=== PATIENT | male | born 1970 | race African-American/Black ===

== ENCOUNTER 2017-01-08 07:43 | Inpatient (IN) | payer OTHER ==
[2017-01-08] MEDS ORDERED: Ondansetron INJ* 2 MG/ML VIAL IV ONE (08:21)
[2017-01-08] MEDS ORDERED: NS 0.9% 1000 ML* 2,000 ML IV ONE ×2 (08:21→09:30)
--- NOTE | 2017-01-08 08:55 | RAD ---
HISTORY: Hyperglycemia COMPARISONS: February 25, 2011 VIEWS:1: Single frontal portable view of the chest at 8:20 AM FINDINGS: LINES AND TUBES: None. CARDIOMEDIASTINAL SILHOUETTE: The cardiomediastinal silhouette is normal for portable technique. PLEURA: The costophrenic angles are sharp. No pleural abnormalities are noted. LUNG PARENCHYMA: The lungs are clear. ABDOMEN: The upper abdomen is clear. There is no subphrenic gas. BONES AND SOFT TISSUES: No bone or soft tissue abnormalities are noted. IMPRESSION: NO ACTIVE CARDIOPULMONARY DISEASE.
[2017-01-08 08:59] LABS: Hematocrit 52 % (42-52); Hemoglobin 16.4 g/dl (14.0-18.0); Mean Corpuscular HGB Conc 32 g/dl (31-36); Mean Corpuscular Hemoglobin 31 pg (27-31); Mean Corpuscular Volume 98 fL (80-94); Mean Platelet Volume 8 um3 (7.4-10.4); Red Blood Count 5.33 10^6/ul (4.0-5.4); Red Cell Distribution Width 14 % (10.5-15)
[2017-01-08 09:00] LABS: Add Diff/Slide Review? Slide Review Added; Comments Flag Yes
[2017-01-08 09:04] LABS: ALT 34 U/L (7-52); Alkaline Phosphatase 58 U/L (34-104); BUN/Creatinine Ratio 22.9 (8-20); Blood Urea Nitrogen 36 mg/dL (6-24); C Reactive Protein 15.45 mg/L (< 5.00); Calcium 9.9 mg/dL (8.6-10.3); Chloride 97 mmol/L (101-111); EGFR African American 61.7 (>60); Globulin 3.1 g/dL (2-4); Sodium 136 mmol/L (133-145); Total Protein 8.1 g/dL (6.4-8.9)
[2017-01-08 09:13] LABS: Glucose 513 mg/dL (70-100)
[2017-01-08 09:15] LABS: Anion Gap 29 mmol/L (2-11); CO2 Carbon Dioxide 10 mmol/L (22-32)
[2017-01-08] MEDS ORDERED: Ciprofloxacin 400MG IVPREMIX(* 400 MG/200 ML BAG IVPB ONE (09:19)
[2017-01-08] MEDS ORDERED: metroNIDAZOLE IV 500 MG/100ML* 500 MG/100 ML BAG IVPB ONE (09:19)
[2017-01-08 09:56] LABS: Venous Bicarbonate HCO3 12.1 mmol/L (24-28)
--- NOTE | 2017-01-08 10:15 | RAD ---
HISTORY: Right upper quadrant pain COMPARISONS: Dated September 17, 2010 TECHNIQUE: Multiple transverse and longitudinal ultrasound images were obtained of the right upper quadrant of the abdomen using grayscale and color Doppler imaging. FINDINGS: LIVER: The liver is normal in shape, size, contour, and echogenicity. There are no focal parenchymal masses. There is normal hepatopedal flow of the portal vein on Doppler imaging. BILIARY TREE: There is no intrahepatic or extrahepatic biliary dilatation. The common duct measures 0.4 cm. GALLBLADDER: The gallbladder is well-visualized. There is no cholelithiasis, gallbladder wall thickening, pericholecystic fluid, or sonographic Cheng sign. PANCREAS: The head of the pancreas is unremarkable. The tail of the pancreas is not well visualized secondary to overlying bowel gas. RIGHT KIDNEY: The right kidney is normal in shape, size, contour, and echogenicity. There is no hydronephrosis or nephrolithiasis. The right kidney measures 11.3 x 5.5 x 5.8 cm. AORTA AND IVC: The aorta and IVC are unremarkable. FLUID: There are no pleural effusions. There is no free fluid within the hepatorenal recess. OTHER FINDINGS: None. IMPRESSION: NO ACUTE SONOGRAPHIC PATHOLOGY OF THE VISUALIZED PORTION OF THE ABDOMEN.
[2017-01-08] MEDS ORDERED: Acetaminophen TAB* 325 MG PO PRN (10:30)
[2017-01-08] MEDS ORDERED: NS 0.45% 1000 ML BAG* 1,000 ML IV SCH ×2 (11:00→17:46)
--- NOTE | 2017-01-08 12:27 | HP ---
CC: Dr. Sukh Ramirez * HISTORY AND PHYSICAL: DATE OF ADMISSION: 01/08/17 PRIMARY CARE PHYSICIAN: Dr. Sukh Ramirez. CHIEF COMPLAINT: Nausea and vomiting. HISTORY OF PRESENT ILLNESS: Mr. Lowery is a pleasant 46-year-old male with past medical history of type 1 diabetes, who presents to the hospital with nausea, vomiting, and weakness. The patient states he was in his usual state of health, felt very well until Thursday, he went out with a friend for oysters at [employer] and also had about 4 or 5 alcoholic drinks that night as well. He states that on the way home before he was able to get out of the car when he got home, he started to have episodes of emesis. He went inside and tried to drink some water; however, he was not able to keep this down. Over the past few days, he says he has just continued to have persistent nausea and vomiting, has eaten almost nothing in the past few days as he has been unable to keep anything down. He has not had any abdominal pain and no diarrhea. He states the emesis has been bilious and then today, it seemed to be a little bit darker and almost black. When stated if it looked like coffee grounds, he agreed. Has not had any bright red blood in the emesis. He states over the past few days, his blood sugars have been difficult to control, often in 200 to 300 despite no p.o. intake and increasing his home insulin. Today, his sugars were in the 400s and due to his progressive symptoms and significant weakness, he decided to come to the hospital for further evaluation. PAST MEDICAL HISTORY: Type 1 diabetes, anxiety, depression. PAST SURGICAL HISTORY: Right shoulder surgery. FAMILY HISTORY: Significant for paternal grandfather with diabetes, son with diabetes. SOCIAL HISTORY: The patient does not smoke cigarettes; however, he smokes marijuana occasionally mixed with tobacco. Reports he will often have 1 to 2 drinks per night. The 4 to 5 that he drank on Thursday night were more than usual for him, although he has never had a reaction like this before. HOME MEDICATIONS: 1. Lantus 15 units subcu twice daily. 2. NovoLog sliding scale. ALLERGIES: The patient has allergy to PENICILLIN that causes hives. REVIEW OF SYSTEMS: A 12-point review of systems negative except for that as noted in the HPI. PHYSICAL EXAMINATION GENERAL: The patient is a pleasant, middle-aged, man lying in bed, appears weak and fatigued, but in no significant distress. VITAL SIGNS: On admission, temperature 98.3, heart rate of 95, respiratory rate of 16, O2 saturation 100% on room air, blood pressure 139/77. HEENT: Head: Normocephalic, atraumatic. Eyes: Pupils equal, round, and reactive to light and accommodation. Anicteric sclerae. ENT: Dry mucous membranes. No cervical adenopathy. LUNGS: Clear to auscultation bilaterally. No wheezes, rales, or rhonchi. CARDIOVASCULAR: Regular rate and rhythm. S1 and S2 present. No murmurs, gallops, or rubs. ABDOMEN: Soft, nontender, nondistended. Bowel sounds hyperactive. EXTREMITIES: No cyanosis, clubbing, or edema. NEURO: The patient is alert and oriented x3. No focal neurological deficits. SKIN: Warm, dry, and well perfused. DIAGNOSTIC STUDIES/LAB DATA: White blood cell count of 27, hemoglobin of 16, hematocrit of 52, platelets of 364, 92% neutrophils. VBG with a pH of 7.19, PCO2 of 31, PO2 of 37, bicarb of 12. Sodium 136, potassium 5.3, chloride of 97 , carbon dioxide of 10, anion gap of 29, BUN of 36, creatinine 1.57, glucose of 513, lactic acid of 2.6. LFT's within normal limits. CRP of 15. Chest x-ray: Personally reviewed shows no acute disease. Abdominal ultrasound shows no acute sonographic pathology. ASSESSMENT AND PLAN: Diabetic ketoacidosis secondary to gastroenteritis, possibly due to foodborne illness in a 46-year-old man with a past medical history of type 1 diabetes, anxiety, and depression. 1. Diabetic ketoacidosis. Seems that was probably triggered from the oysters the patient ate, which developed into gastroenteritis. The patient has received 2 L of IV fluid in the emergency department. I asked Dr. Apple to order another 2 L bolus, to start the patient on an insulin drip, and check q.1 hour fingersticks. We will also check q.4 hour BMPs to ensure that his anion gap is closing. We will also recheck lactic in a few hours. The patient's corrected sodium is actually elevated at [address] him on half- normal saline for now at 250 cc an hour, can adjust this if needed. For now, we will keep the patient n.p.o. Not sure the patient has an infection necessitating antibiotics. He received Cipro and Flagyl in the emergency department. We will hold on any additional antibiotics for now. We will check a stool culture and a fecal lactoferrin. This could just potentially be viral and the patient's blood seems hemoconcentrated as well. We will monitor his CBC daily. 2. Acute kidney injury. Likely due to significant volume depletion. Creatinine is 1.57, seems like the patient's baseline, at least in the last check in 2011 was around 0.8. As noted above, will be following his BMPs closely. 3. Dark emesis. Possibly could have had some blood in the emesis, maybe due to gastritis, with hans-roberson would have expected red blood. Check gastric occult blood, monitor CBC 4. DVT prophylaxis. Heparin subcu. 5. Code status. The patient is full code. TIME SPENT: Total time spent on this admission was 60 minutes with over half the time spent [id number] with the patient in counseling and coordinating care. [id number]/[facility] #: [id number] MTDD
[2017-01-08 12:46] LABS: BUN/Creatinine Ratio 22.7 (8-20); Calcium 8.6 mg/dL (8.6-10.3); EGFR African American 78.2 (>60); EGFR Non-African American 60.8 (>60); Potassium 4.4 mmol/L (3.5-5.0)
[2017-01-08] MEDS ORDERED: Potassium Phosphate IV* 10 MMOLE in NS 0.9% 250 ML* 250 ML IVPB PRN (15:28)
[2017-01-08] MEDS ORDERED: Potassium Phosphate IV* 20 MMOLE in NS 0.9% 250 ML* 250 ML IVPB PRN (15:29)
[2017-01-08] MEDS ORDERED: Potassium Phosphate IV* 15 MMOLE in NS 0.9% 250 ML* 250 ML IVPB PRN (15:29)
[2017-01-08] MEDS ORDERED: D5W 1/2 NS KCl 20 Meq 1000 ML* 1,000 ML IV SCH (16:00)
[2017-01-08] MEDS: Heparin VIAL(*) 5000 UNITS/ML VIAL (FIVE THOUSAND) SUBCUT SCH ×2 (16:22→20:52)
[2017-01-08 16:55] LABS: BUN/Creatinine Ratio 21.1 (8-20); Calcium 8.3 mg/dL (8.6-10.3); EGFR African American 89.3 (>60); EGFR Non-African American 69.5 (>60)
[2017-01-08] MEDS: D5W 1/2 NS KCl 20 Meq 1000 ML* 1,000 ML IV SCH (19:30)
[2017-01-08] MEDS ORDERED: Dextrose 50% Syringe 50 ML* 25 GM/50 ML SYRINGE IV PUSH PRN (19:41)
[2017-01-08] MEDS: Ondansetron INJ* 2 MG/ML VIAL IV PRN (20:47)
[2017-01-08] MEDS: Insulin LISPRO* 1 UNITS UNIT SUBCUT SCH (23:58)
[2017-01-09 00:20] LABS: BUN/Creatinine Ratio 18.4 (8-20); Calcium 8.1 mg/dL (8.6-10.3); EGFR African American 100.4 (>60); EGFR Non-African American 78.1 (>60); Potassium 3.7 mmol/L (3.5-5.0)
[2017-01-09] MEDS: D5W 1/2 NS KCl 20 Meq 1000 ML* 1,000 ML IV SCH (02:58)
[2017-01-09] MEDS: Insulin LISPRO* 1 UNITS UNIT SUBCUT SCH ×5 (04:04→20:44)
[2017-01-09 05:37] LABS: Hematocrit 37 % (42-52); Hemoglobin 12.1 g/dl (14.0-18.0); Mean Corpuscular HGB Conc 32 g/dl (31-36); Mean Corpuscular Hemoglobin 31 pg (27-31); Mean Corpuscular Volume 95 fL (80-94); Mean Platelet Volume 8 um3 (7.4-10.4); Red Blood Count 3.91 10^6/ul (4.0-5.4); Red Cell Distribution Width 14 % (10.5-15); White Blood Count 18.3 10^3/ul (3.5-10.8)
[2017-01-09] MEDS: Heparin VIAL(*) 5000 UNITS/ML VIAL (FIVE THOUSAND) SUBCUT SCH ×3 (05:49→20:45)
[2017-01-09 05:50] LABS: BUN/Creatinine Ratio 17.7 (8-20); EGFR African American 108.9 (>60); EGFR Non-African American 84.7 (>60); Potassium 3.6 mmol/L (3.5-5.0)
[2017-01-09] MEDS: Ondansetron INJ* 2 MG/ML VIAL IV PRN (09:17)
[2017-01-09] MEDS: Insulin GLARGINE(*) 1 UNITS UNIT SUBCUT SCH ×2 (09:17→20:43)
[2017-01-09] MEDS: D5W 1/2 NS 40 Meq KCL 1000 ML* 1,000 ML IV SCH ×2 (11:18→20:45)
[2017-01-10] MEDS: Insulin LISPRO* 1 UNITS UNIT SUBCUT SCH ×3 (00:25→07:59)
[2017-01-10] MEDS: D5W 1/2 NS 40 Meq KCL 1000 ML* 1,000 ML IV SCH (05:32)
[2017-01-10] MEDS: Heparin VIAL(*) 5000 UNITS/ML VIAL (FIVE THOUSAND) SUBCUT SCH (05:37)
[2017-01-10 05:40] LABS: Hematocrit 38 % (42-52); Hemoglobin 12.4 g/dl (14.0-18.0); Mean Corpuscular HGB Conc 33 g/dl (31-36); Mean Corpuscular Hemoglobin 32 pg (27-31); Mean Corpuscular Volume 96 fL (80-94); Mean Platelet Volume 8 um3 (7.4-10.4); Red Blood Count 3.94 10^6/ul (4.0-5.4); Red Cell Distribution Width 13 % (10.5-15); White Blood Count 9.7 10^3/ul (3.5-10.8)
[2017-01-10 05:54] LABS: Albumin 3.2 g/dL (3.2-5.2); BUN/Creatinine Ratio 9.7 (8-20); Calcium 8.2 mg/dL (8.6-10.3); Direct Bilirubin 0.2 mg/dL (0.03-0.18); EGFR African American 151.8 (>60); EGFR Non-African American 118.1 (>60); Magnesium 1.7 mg/dL (1.9-2.7); Potassium 3.2 mmol/L (3.5-5.0); Total Bilirubin 1.2 mg/dL (0.2-1.0); Total Protein 5.2 g/dL (6.4-8.9)
[2017-01-10] MEDS: Insulin GLARGINE(*) 1 UNITS UNIT SUBCUT SCH (09:16)
--- NOTE | 2017-01-10 09:33 | PN ---
Subjective - Subjective Reason for Note: Discharge Note History: Discharge summary He has managed to keep his breakfast down and he is feeling much better. No bowel movement. He has had no sweats/fevers. Active Problems: Active Problems Diabetic ketoacidosis (Acute) E13.10 Gastroenteritis (Acute) K52.9 Type 1 diabetes mellitus, uncontrolled (Acute) E10.65 History of alcoholism (Chronic) F10.21 Non-proliferative diabetic retinopathy (Chronic) E11.3299 Current Medications: Current Medications Acetaminophen (Tylenol Tab*) 650 mg PO Q4H PRN PRN Reason: FEVER/PAIN Last Admin: 01/08/17 13:01 Dose: 650 mg Dextrose (D50w Syringe 50 Ml*) 12.5 gm IV PUSH .FOR FS < 60 - SS PRN PRN Reason: FS < 60 Heparin Sodium (Porcine) (Heparin Vial(*)) 5,000 units SUBCUT Q8HR [facility] Last Admin: 01/10/17 05:37 Dose: Not Given Insulin Glargine (Lantus(*)) 20 units SUBCUT Q12H AV[facility] Last Admin: 01/10/17 09:16 Dose: 20 units Insulin Human Lispro (Humalog*) 0 units SUBCUT Q4H AVA PRN Reason: Protocol Last Admin: 01/10/17 07:59 Dose: Not Given Ondansetron HCl (Zofran Inj*) 4 mg IV Q6H PRN PRN Reason: NAUSEA Last Admin: 01/09/17 09:17 Dose: 4 mg Home Medications: Home Medications Medication Instructions Recorded Confirmed Type Insulin Glargine [Lantus] 15 units INJ BID 01/08/17 01/08/17 History Novolog Penfill 5 units INJ QID 01/08/17 01/08/17 History Allergies: Allergies Allergy/AdvReac Type Severity Reaction Status Date / Time Penicillins [PCN] Allergy Hives Verified 01/08/17 07:50 Objective - Vital Signs Vital Signs: Vital Signs 01/09/17 01/09/17 01/09/17 09:30 09:45 10:00 Temperature Pulse Rate 64 55 Respiratory 15 10 16 Rate Blood Pressure 133/74 (mmHg) O2 Sat by Pulse 99 100 Oximetry 01/09/17 01/09/17 01/09/17 10:30 11:00 11:30 Temperature Pulse Rate 63 58 63 Respiratory 14 16 17 Rate Blood Pressure 135/65 (mmHg) O2 Sat by Pulse 98 100 100 Oximetry 01/09/17 01/09/17 01/09/17 11:31 11:54 12:00 Temperature 99.1 F Pulse Rate 62 Respiratory 17 18 Rate Blood Pressure 134/73 (mmHg) O2 Sat by Pulse 99 Oximetry 01/09/17 01/09/17 01/09/17 12:30 12:46 13:00 Temperature Pulse Rate 59 80 Respiratory 16 17 15 Rate Blood Pressure 117/82 (mmHg) O2 Sat by Pulse 100 100 Oximetry 01/09/17 01/09/17 01/09/17 13:30 14:00 14:30 Temperature Pulse Rate 65 65 59 Respiratory 9 15 14 Rate Blood Pressure 141/78 (mmHg) O2 Sat by Pulse 100 100 100 Oximetry 01/09/17 01/09/17 01/09/17 15:00 15:30 16:00 Temperature 98.0 F Pulse Rate 61 67 62 Respiratory 7 18 19 Rate Blood Pressure 128/68 136/78 (mmHg) O2 Sat by Pulse 100 100 98 Oximetry 01/09/17 01/09/17 01/09/17 16:30 17:00 17:30 Temperature Pulse Rate 63 64 71 Respiratory 18 15 16 Rate Blood Pressure 128/73 (mmHg) O2 Sat by Pulse 99 99 100 Oximetry 01/09/17 01/09/17 01/09/17 18:00 18:30 19:00 Temperature Pulse Rate 63 69 61 Respiratory 12 18 19 Rate Blood Pressure 140/76 145/85 (mmHg) O2 Sat by Pulse 100 100 100 Oximetry 01/09/17 01/09/17 01/09/17 19:30 19:34 20:00 Temperature 99.7 F Pulse Rate 72 66 Respiratory 13 12 Rate Blood Pressure 136/78 (mmHg) O2 Sat by Pulse 99 99 Oximetry 01/09/17 01/09/17 01/09/17 20:30 21:00 21:30 Temperature Pulse Rate 67 65 63 Respiratory 9 20 13 Rate Blood Pressure 140/80 (mmHg) O2 Sat by Pulse 100 100 100 Oximetry 01/09/17 01/09/17 01/09/17 21:57 22:00 22:30 Temperature Pulse Rate 68 69 Respiratory 20 20 18 Rate Blood Pressure 130/69 (mmHg) O2 Sat by Pulse 100 100 Oximetry 01/09/17 01/09/1701/09/17 23:00 23:30 23:46 Temperature 99.6 F Pulse Rate 64 65 Respiratory 17 18 Rate Blood Pressure 130/75 (mmHg) O2 Sat by Pulse 98 99 Oximetry 01/09/17 01/10/17 01/10/17 23:50 00:00 00:01 Temperature Pulse Rate 61 59 63 Respiratory 12 16 18 Rate Blood Pressure 133/68 (mmHg) O2 Sat by Pulse 100 100 100 Oximetry 01/10/17 01/10/17 01/10/17 00:30 01:00 01:30 Temperature Pulse Rate 63 69 60 Respiratory 14 19 19 Rate Blood Pressure 132/77 (mmHg) O2 Sat by Pulse 97 100 99 Oximetry 01/10/17 01/10/17 01/10/17 02:00 02:30 03:00 Temperature Pulse Rate 61 57 58 Respiratory 18 16 18 Rate Blood Pressure 120/70 132/74 (mmHg) O2 Sat by Pulse 100 100 100 Oximetry 01/10/17 01/10/17 01/10/17 03:29 03:30 04:00 Temperature 98.9 F Pulse Rate 58 60 Respiratory 15 16 15 Rate Blood Pressure 130/78 (mmHg) O2 Sat by Pulse 99 99 Oximetry 01/10/17 01/10/17 01/10/17 04:30 05:00 05:30 Temperature Pulse Rate 61 68 61 Respiratory 19 19 12 Rate Blood Pressure 137/84 (mmHg) O2 Sat by Pulse 100 100 99 Oximetry 01/10/17 01/10/17 01/10/17 05:41 06:00 06:30 Temperature Pulse Rate 62 62 Respiratory 12 16 11 Rate Blood Pressure 129/67 (mmHg) O2 Sat by Pulse 99 100 Oximetry 01/10/17 01/10/17 01/10/17 07:00 07:30 08:00 Temperature 99.1 F Pulse Rate 60 60 68 Respiratory 18 17 15 Rate Blood Pressure 125/62 119/63 (mmHg) O2 Sat by Pulse 99 98 99 Oximetry 01/10/17 08:30 Temperature Pulse Rate 62 Respiratory 12 Rate Blood Pressure (mmHg) O2 Sat by Pulse 100 Oximetry - Intake and Output Intake and Output: Intake & Output 01/07/17 01/08/17 01/09/17 01/10/17 11:59 11:59 11:59 11:59 Intake Total 2991.9 3603 Output Total 1900 1950 Balance 1091.9 1653 Weight 139 lb 145 lb 4.554 oz 153 lb 3.54 oz Intake: IV Fluids 2430 2883 ABX - CIPROFLOXACIN 255 D5W 1/2 NS 20 meq KCL 2175 968 D5W 1/2 NS 40 meq KCL 1915 Medicated IV 51.9 CC - Insulin 51.9 Oral 510 720 Output: Urine 1900 1950 ADLs: Meal Record Start: 01/08/17 10: 48 Freq: 09,13,18 Status: Active Document 01/08/17 13:00 [id number] (Rec: 01/08/17 13:26 [id number] ICU-C10) Document 01/08/17 18:00 [id number] (Rec: 01/08/17 18:00 [id number] ICU-C07) Document 01/09/17 09:00 [id number] (Rec: 01/09/17 11:35 [id number] ICU-C07) Document 01/09/17 13:00 [id number] (Rec: 01/09/17 17:15 ICU-C07) Document 01/09/17 17:56 [id number] (Rec: 01/09/17 17:57 [id number] ICU-C07) Intake and Output Start: 01/08/17 10: 48 Freq: 06,14,22 Status: Active Document 01/08/17 12:00 [id number] (Rec: 01/08/17 18:59 [id number] ICU-C07) Document 01/08/17 14:00 [id number] (Rec: 01/08/17 16:05 [id number] ICU-M01) Document 01/08/17 21:57 [id number] (Rec: 01/08/17 21:57 [id number] ICU-C07) Document 01/08/17 22:35 [id number] (Rec: 01/08/17 22:35 [id number] ICU-C07) Document 01/09/17 00:28 [id number] (Rec: 01/09/17 00:28 [id number] ICU-C07) Document 01/09/17 05:32 [id number] (Rec: 01/09/17 05:33 [id number] ICU-C07) Document 01/09/17 13:40 [id number] (Rec: 01/09/17 13:40 [id number] ICU-C07) Document 01/09/17 21:57 [id number] (Rec: 01/09/17 21:57 [id number] ICU-C07) Document 01/09/17 23:48 [id number] (Rec: 01/09/17 23:49 [id number] ICU-C07) Document 01/10/17 05:40 [id number] (Rec: 01/10/17 05:40 [id number] ICU-C07) Document 01/10/17 06:06 [id number] (Rec: 01/10/17 06:07 [id number] ICU-C07) - Physical Exam General Physical Exam Comment: He is with his family. He is warm and well perfused and in no distress. General: No Cyanosis, No Anemia, No Jaundice, No Clubbing Lungs and Chest: Yes: Chest Expansion Full, Chest Expansion Symetrica, Percussion Note Resonant, Vessicular Breath Sounds. No: Crackles, Wheezes Heart Rate and Rhythm: Regular JVP: Not Elevated Additional Cardiovascular: Yes: Normal Heart Sounds. No: Heart Murmur, Pedal Edema Abdominal Exam: Yes: Soft, Bowel Sounds Present. No: Distention, Abdominal Mass , Abdominal Tenderness - Extremities Dorsalis Pedis Pulses: Bilateral Normal Cranial Nerves II-XII Intact: Yes Limbs: Normal Power, Normal Tone - Neuro Orientation: A/O x3 Psychiatric: Normal Speech: Normal Results - Results Lab Results: Laboratory Results - last 24 hr 01/09/17 01/09/17 01/09/17 11:44 16:12 20:34 WBC RBC Hgb Hct MCV MCH MCHC RDW Plt Count MPV Neut % (Auto) Lymph % (Auto) Tate % (Auto) Eos % (Auto) Baso % (Auto) Absolute Neuts (auto) Absolute Lymphs (auto) Absolute Monos (auto) Absolute Eos (auto) Absolute Basos (auto) Absolute Nucleated RBC Nucleated RBC % Sodium Potassium Chloride Carbon Dioxide Anion Gap BUN Creatinine Est GFR ( Amer) Est GFR (Non-Af Amer) BUN/Creatinine Ratio Glucose POC Glucose (mg/dL) 181 H 233 H 127 H Calcium Magnesium Total Bilirubin Direct Bilirubin Indirect Bilirubin AST ALT Alkaline Phosphatase Total Protein Albumin Globulin Albumin/Globulin Ratio 01/10/17 01/10/17 01/10/17 00:24 05:20 05:20 WBC 9.7 RBC 3.94 L Hgb 12.4 L Hct 38 L MCV 96 H MCH 32 H MCHC 33 RDW 13 Plt Count 215 MPV 8 Neut % (Auto) 62.4 Lymph % (Auto) 29.2 Tate % (Auto) 6.8 Eos % (Auto) 1.2 Baso % (Auto) 0.4 Absolute Neuts (auto) 6.1 Absolute Lymphs (auto) 2.8 Absolute Monos (auto) 0.7 Absolute Eos (auto) 0.1 Absolute Basos (auto) 0 Absolute Nucleated RBC 0.01 Nucleated RBC % 0.1 Sodium 137 Potassium 3.2 L Chloride 110 Carbon Dioxide 23 Anion Gap 4 BUN 7 Creatinine 0.72 Est GFR ( Amer) 151.8 Est GFR (Non-Af Amer) 118.1 BUN/Creatinine Ratio 9.7 Glucose 78 POC Glucose (mg/dL) 121 H Calcium 8.2 L Magnesium 1.7 L Total Bilirubin 1.20 H Direct Bilirubin 0.20 H Indirect Bilirubin 1.0 AST 23 ALT 19 Alkaline Phosphatase 38 Total Protein 5.2 L Albumin 3.2 Globulin 2.0 Albumin/Globulin Ratio 1.6 01/10/17 01/10/17 05:26 07:56 WBC RBC Hgb Hct MCV MCH MCHC RDW Plt Count MPV Neut % (Auto) Lymph % (Auto) Tate % (Auto) Eos % (Auto) Baso % (Auto) Absolute Neuts (auto) Absolute Lymphs (auto) Absolute Monos (auto) Absolute Eos (auto) Absolute Basos (auto) Absolute Nucleated RBC Nucleated RBC % Sodium Potassium Chloride Carbon Dioxide Anion Gap BUN Creatinine Est GFR ( Amer) Est GFR (Non-Af Amer) BUN/Creatinine Ratio Glucose POC Glucose (mg/dL) 83 117 H Calcium Magnesium Total Bilirubin Direct Bilirubin Indirect Bilirubin AST ALT Alkaline Phosphatase Total Protein Albumin Globulin Albumin/Globulin Ratio Assessment - Problem List Assessment: Patient Problems Diabetic ketoacidosis (Acute) Gastroenteritis (Acute) Type 1 diabetes mellitus, uncontrolled (Acute) History of alcoholism (Chronic) Non-proliferative diabetic retinopathy (Chronic)
[2017-01-10 09:35] VITALS: BP 154/84
--- NOTE | 2017-01-10 20:40 | DS ---
DISCHARGE SUMMARY: DATE OF ADMISSION: 01/08/17 DATE OF DISCHARGE: 01/10/17 DISCHARGE DIAGNOSES: 1. Gastroenteritis/food poisoning. 2. Diabetic ketoacidosis. HISTORY OF PRESENT ILLNESS: Izzy Lowery is a 46-year-old male, whose presenta tion is detailed in Ravindra Quinonez MD's admitting history and physical. In short, this is a patien t with type 1 diabetes mellitus, which is not well controlled. He was in good general health. On 0 01/05/17, in the evening, he went to a local restaurant, ate oysters and shellfish and drank alcohol round about 4 to 5 drinks that he admits to, and on the way home, he developed nausea and subsequent to this developed vomiting. He was unable to keep any water down. Over the next few days, he had persistent nausea, vomiting, unable to eat, unable to keep much fluid down. His blood sugars were r unning high despite insulin therapy. He denied any abdominal pain or diarrhea. He stated that he peñaloza d bilious vomiting, though there was some darkness to the vomit, no classical coffee ground. His bl ood sugars have run 200 to 300 and on the day of presentation went into the 400s. Physical examination in the emergency room, weak, fatigued. Temperature 98.3, heart rate 95, respir ations 16, oxygen saturation 100% on room air, blood pressure 139/77. Abdominal examination: Soft, nontender, nondistended, hyperactive bowel sounds. Diagnostic labs in the emergency room: White count 27, hemoglobin 16, hematocrit 52, platelets 36. 4, 92% neutrophils. Venous blood gases: pH 7.19, PCO2 31, PO2 37, bicarbonate 12. Sodium was 136, potassium 5.3, chloride 97, bicarbonate 10, anion gap 27, BUN 36, creatinine 1.57, lactic acid 2.6 . Normal liver function tests. CPR 15. Chest x-ray: No acute disease. Abdominal ultrasound: No gallbladder pathology. Initial impression: Gastroenteritis and diabetic ketoacidosis, foodborne i llness. He was managed in the ICU with IV fluid, IV insulin, electrolyte replacement therapy. He was started on IV antibiotics initially. HOSPITAL COURSE: On 01/09/17, he got continued nausea, was unable to keep much food down; he requir ed IV fluid during the day. His blood glucose levels were running a little high, but he was no long er acidotic and his electrolyte balance improved. On the day of discharge, he was able to eat much of his breakfast. He had no further nausea. No abdominal pain. He still has not had a bowel movem ent. He is not feeling weak or lightheaded. He feels ready for discharge. His family members were present and they felt that they could help manage with him at home. REVIEW OF SYSTEMS: No fevers, sweats. No chest pain, shortness of breath, or palpitations. Respir atory System: No productive cough. Gastrointestinal System: No nausea, vomiting, abdominal pain, o r diarrhea. Genitourinary System: He has appropriate polyuria for the IV fluids he has been receiv ing. He has had no edema as a result of this. He has no headaches. No photophobia or neck stiffne ss. PHYSICAL EXAMINATION: On the day of discharge, temperature 99.1, blood pressure 154/84, oxygen satu ration 100%, respiratory rate 13, pulse rate 67. He is warm and well perfused. Cardiovascular Syst em: Pulse regular. Normal character and volume. Heart sounds normal. No added sounds or murmurs. No pedal edema. Pedal pulse is present. No carotid bruits. Respiratory System: Chest is clear. Abdomen: Soft, not distended, no tenderness, rebound or guarding or rigidity. No hepatosplenomega ly. Bowel sounds were normal. Nervous System: Alert and oriented. Conjugate eye movement. Kaila l speech. Arms and Legs: Full power, normal tone and coordination. INVESTIGATIONS ON THE DAY OF DISCHARGE: White count 9.7, hemoglobin 12.4, hematocrit 38, neutrophil percent 62.4, platelets 215, normal differential. Chemistry: CMP normal except for a potassium of 3.2, calcium of 8.2, magnesium of 1.7. Total bilirubin was 1.2, direct was 0.2, otherwise normal. ASSESSMENT AND PLAN: 1. Gastroenteritis, this appears to be resolving. I suspect this was a form of food poisoning. He is now able to eat and drink and hence I think he is ready to go home. I do not think he needs any further antibiotic treatment. 2. Diabetic ketoacidosis. He has recovered. He has some minor electrolyte imbalances today. He w ill make these up rapidly as he eats and drinks. 3. Type 1 diabetes, poor control. He is at present under tight control in the hospital. I have in creased his Lantus insulin to 20 units twice daily during his hospitalizations, but as he becomes mo re active, this can come back down to his usual dose. 4. History of alcoholism. I have told him once again with his present that he should not drin k any alcohol. He also has a history of smoking but he is not smoking at this time and denies any o ther substance abuse. 5. He has a history of diabetic retinopathy which is nonproliferative, he needs to follow up with Ophthalmology. He is going to meet with me within a week in my office and I will once again work wi th him towards more compliant diabetes management. I think that of this visit has been making contact with his , Enid Nayak, and she is going to come in the future to his office visits . DISCHARGE MEDICATIONS: 1. Basaglar insulin 15 units twice daily. 2. Humalog insulin, carbohydrate counting, 1 unit for every 15 g of carbohydrate, plus 1 unit for e very 50 mg/dL greater than 150 mg/dL. [id number]/[facility] #: [id number]
== END 2017-01-10 10:15 | disposition home or self-care (01) | DRG 816 ==
LOC: ED 07:43 → ICU 10:10
PROVIDERS: ADMIT Hospitalist; ATTEND Internal Medicine
DX: T61.781A Other shellfish poisoning, accidental (unintentional), initial encounter (principal); E10.10 Type 1 diabetes mellitus with ketoacidosis without coma; N17.9 Acute kidney failure, unspecified; K52.1 Toxic gastroenteritis and colitis; F32.9 Major depressive disorder, single episode, unspecified; F41.9 Anxiety disorder, unspecified; F10.20 Alcohol dependence, uncomplicated; Y90.9 Presence of alcohol in blood, level not specified; E10.3299 Type 1 diabetes mellitus with mild nonproliferative diabetic retinopathy without macular edema, unspecified eye; Z87.891 Personal history of nicotine dependence; Z83.3 Family history of diabetes mellitus; Y92.511 Restaurant or cafe as the place of occurrence of the external cause; Z88.0 Allergy status to penicillin; Z79.4 Long term (current) use of insulin
CPT/HCPCS: 36415; 71010; 76705; 80048; 80053; 80076; 82803; 83605; 83735; 84100; 85025; 86140; 86850; 86900; 86901; 87040; 87641; A9270-GY; J0744; J1644; J2405